=== PATIENT | female | born 1985 | race Caucasian/White ===

== ENCOUNTER → 2025-03-12 | Outpatient (CLI) | payer OTHER, SELFPAY ==
[2025-03-14 16:08] LABS: ANTINUCLEAR ANTIBODIES DIRECT Negative (Negative); Anti-dsDNA Ab 7 IU/mL (0-9)
== END | disposition home or self-care (01) ==
LOC: MTLAB 14:33
PROVIDERS: Referring Provider Dermatology; Visit Provider Dermatology
DX: L71.8 Other rosacea (principal); Z13.89 Encounter for screening for other disorder
CPT/HCPCS: 36415; 86038; 86225